=== PATIENT | female | born 1945 | race Caucasian/White ===

== ENCOUNTER → 2016-02-29 16:28 | Outpatient (CLI) | payer MEDICARE, OTHER ==
[2014-07-03 07:00] VITALS: BMI 29.0
[~2016-02-29 16:28] MED LIST: AMBIEN10 MG PO; AREDS; ATIVAN1 MG PO; BAYER CHEWABLE81 MG PO; CALCIUM 500 +1 EAC3 PO; CYCLOBENZAPRINE5 MG PO; CYMBALTA60 MG PO; DEXILANT30 MG PO; FLUTICASONE PRO16 GM NASAL; HYDROCHLOROTHIA25 MG; ISOSORBIDE DINI30 MG PO; METOPROLOL TART50 MG PO; PEPCID40 MG PO; PLAVIX75 MG PO; PRALUENT P75 MG/1 ML SC; PROZAC20 MG PO; SYNTHROID112 MCG PO; VITAMIN D250000 UNIT PO; ZETIA10 MG PO
== END | disposition home or self-care (01) ==
LOC: D.MAMMO 10:15
DX: Z12.31 Encounter for screening mammogram for malignant neoplasm of breast (principal)

== ENCOUNTER 2016-05-06 12:27 | Outpatient (CLI) | payer MEDICARE, OTHER ==
[~2016-05-06] VITALS: Ht 170.2 cm; Wt 85.5 kg
[~2016-05-06 12:27] MED LIST changes: -CYMBALTA60 MG PO; -HYDROCHLOROTHIA25 MG; -PEPCID40 MG PO; -PRALUENT P75 MG/1 ML SC
[2016-05-06] MEDS ORDERED: PRALUENT P75 MG/1 ML SC (13:03)
[2016-05-06] MEDS ORDERED: CYMBALTA60 MG PO (13:03)
[2016-05-06] MEDS ORDERED: PEPCID40 MG PO (13:04)
[2016-05-06] MEDS ORDERED: HYDROCHLOROTHIA25 MG (13:06)
[2016-05-06 13:10] VITALS: BP 124/70; Ht 170.2 cm; Wt 85.5 kg
--- NOTE | 2016-05-06 13:56 | NUR ---
1350 NO PROBLEMS WITH INJECTION, STATES MAYBE HER ACID REFLUX IS A LITTLE WORSE BUT MAYBE IT'S WORSE SINCE SHE READ IN THE PAPERS IT MAY GET WORSE. DENIES PROBLEMS. RELEASED AMB.
== END 2016-05-06 13:50 | disposition home or self-care (01) ==
LOC: D.OPS 12:27
DX: M81.0 Age-related osteoporosis without current pathological fracture (principal)

== ENCOUNTER → 2016-07-18 07:31 | Outpatient (CLI) | payer MEDICARE, OTHER ==
[2016-05-06 13:10] VITALS: BMI 29.5
[~2016-07-18 07:31] MED LIST changes: +CYMBALTA60 MG PO; +HYDROCHLOROTHIA25 MG; +PEPCID40 MG PO; +PRALUENT P75 MG/1 ML SC
== END | disposition home or self-care (01) ==
LOC: D.CT 07:31
DX: I70.219 Atherosclerosis of native arteries of extremities with intermittent claudication, unspecified extremity (principal)

== ENCOUNTER 2016-07-24 06:12 | Day surgery (SDC) | payer MEDICARE, OTHER ==
[2016-07-23 11:02] LABS: HEMATOCRIT 42.5 % (36.0-48.0); HEMOGLOBIN 13.6 g/dL (12-16); MCH 30.8 pg (26.0-34.0); MCV 96.4 fL (80.0-100.0); MEAN PLATELET VOLUME 9.1 fL (7.4-10.4); RBC 4.41 10x6/uL (4.00-5.40); RDW 12.4 % (11.5-14.5)
[2016-07-23 11:20] LABS: CALC OSMOLALITY 274 mosm/kg (275-300); CALCIUM 8.3 mg/dL (8.5-10.1); CARBON DIOXIDE 28.2 mmol/L (21.0-32.0); CHLORIDE - SERUM 104 mmol/L (98-107); CREATININE - SERUM 0.7 mg/dL (0.6-1.3); GLUCOSE 89 mg/dL (74-106); POTASSIUM - SERUM 4.2 mmol/L (3.5-5.1); SODIUM 139 mmol/L (136-145); UREA NITROGEN 8 mg/dL (7-18); eGFR NON AFRICAN AMERICAN 88 mL/min (90-120)
[~2016-07-24] VITALS: Ht 170.2 cm; Wt 87.1 kg
[~2016-07-24 06:12] MED LIST changes: -AREDS; +AREDS PO; -HYDROCHLOROTHIA25 MG; +HYDROCHLOROTHIA25 MG PO
[2016-07-24] MEDS ORDERED: GABAPENTIN100 MG (11:04)
[2016-07-24] MEDS ORDERED: FLORAJEN3 CAPS460 MG (11:06)
[2016-07-24 11:11] VITALS: BP 139/67; Ht 170.2 cm; Wt 87.1 kg
--- NOTE | 2016-07-25 15:49 | OP ---
PATIENT NAME: RADHA GARRETT MEDICAL RECORD: [id number] :46 LOCATION:[facility] ADMISSION DATE: SURGEON: NATALIIA MARTINES MD DATE OF OPERATION: 07/24/2016 SURGEON: Nataliia Martines MD ANESTHESIA: MAC by Ryan Tineo CRNA. PREOPERATIVE DIAGNOSES: Recurring urinary tract infections, possible interstitial cystitis, urethral stricture. PROCEDURES: Urethral dilation to 30-Azerbaijani, cystoscopy, intravesical Rimso instillation 50 mL times 50%, [employer], lot #[id number], expiration date is January 2018. FINDINGS: No urethral stricture, but abnormal angulation due to cystocele and enterocele. Single ureteral orifices bilaterally. No eroded mesh seen in the bladder. No bladder tumors. Diffuse bladder inflammation. ESTIMATED BLOOD LOSS: None. CLINICAL HISTORY: This is a 71-year-old female with a rather complicated history. At the present time, she has symptoms of recurrent urinary tract infections. She was seen by doctors, Barry and Jacqueline previously. She has had in the past a hysterectomy and a Jaci plication and placement of a cystocele repair with mesh. She then had recurrence of the cystocele and Dr. Phillips removed the old mesh and placed the new mesh graft for reduction of the cystocele. She still had issues with feeling incomplete, emptying of the bladder. Dr. Reddy performed periodic urethral dilations on her. Also, she continued to have recurrent symptoms of urinary tract infections, although I am not sure if she ever had achieved positive cultures. Dr. Phillips kept her on cephalexin for a very prolonged period of time. Eventually, she gave up on that treatment. She was dissatisfied overall with the seeming lack of progress in her treatment, then she came to see me in [place]. When I examined her, she had what seemed to me to be an enterocele grade II-III, but there is also a bit of recurrence of her prolapse. I was concerned about whether or not she had graft erosion into the bladder. On bimanual examination, there seems to be no graft exposure in the vaginal space. She tells me that she began having symptoms of cystitis. Today, we gave her a gram of Ancef and she will be having urethral dilation as well as cystoscopy. DESCRIPTION OF PROCEDURE: The patient was given IV sedation. She was placed in the dorsal lithotomy position and prepped and draped. The urethral sounds from 20-Azerbaijani were progressively increased in size and used to dilate the urethra to 30-Azerbaijani. However, even in passing the 20-Azerbaijani urethral sound, I could not really feel significant degree of resistance in the urethra. The urethra is hypermobile and there may be angulation of the urethra from her recurrent cystocele, which ____ grade I and a definite enterocele grade II-III by the [place]-Walker scale. The cystoscope was then introduced. That is a 21-Azerbaijani cystoscope with 30-degree lens. Looking in the bladder, no mesh is seen in the urethra or the bladder wall. She has single ureteral orifices on each side. No bladder tumors were seen. There was quite significant and diffuse bladder inflammation. She has been on antibiotics recently; I do not think that this is a bacterial infection. We drained the bladder through the cystoscope sheath. I OPERATIVE REPORT [id number] RADHA GARRETT introduced a 14-Azerbaijani red rubber catheter and through the catheter, 50 mL of 50% Rimso was instilled into the bladder. She will hold it in for a period of at least 15 minutes. This is an anti-inflammatory. I will see her again in the followup next week in [facility] where she will get treatment #2 of Rimso. Eventually, I will have to discuss with her an abdominal sacral colpopexy to try to fix the apical defect in the vaginal vault. TRANSINT:[id number] Voice Confirmation ID: [id number] DOCUMENT ID: [id number] NATALIIA MARTINES MD at 1549 CC: [id number] DICTATION DATE: 07/24/16 1454 ENGAGEMENT LIAISON: 07/25/16 0042 [facility] 07/24/16 [facility] [address] [id number]
== END 2016-07-24 15:25 | disposition home or self-care (01) ==
LOC: D.PAN 06:12 → D.OPS 11:45 → D.PAN 15:25
PROVIDERS: Anesthesiology
DX: N39.0 Urinary tract infection, site not specified (principal); N81.10 Cystocele, unspecified; K46.9 Unspecified abdominal hernia without obstruction or gangrene

== ENCOUNTER → 2016-08-22 19:23 | Outpatient (CLI) | payer MEDICARE, OTHER ==
[~2016-08-22 19:23] MED LIST changes: +FLORAJEN3 CAPS460 MG; +GABAPENTIN100 MG
[2016-08-22 19:31] LABS: APPEARANCE CLEAR (CLEAR); BILIRUBIN NEGATIVE (NEGATIVE); COLOR YELLOW (YELLOW); GLUCOSE NEGATIVE (NEGATIVE); KETONE NEGATIVE (NEGATIVE); LEUKOCYTE ESTERASE NEGATIVE (NEGATIVE); NITRITE NEGATIVE (NEGATIVE); PROTEIN NEGATIVE (NEGATIVE); SPECIFIC GRAVITY 1.005 (1.005-1.020); UROBILINOGEN NORMAL (NORMAL)
== END | disposition home or self-care (01) ==
LOC: D.LABREF 19:23
PROVIDERS: Urology
DX: N39.0 Urinary tract infection, site not specified (principal)

== ENCOUNTER → 2016-10-07 18:03 | Outpatient (CLI) | payer MEDICARE, OTHER ==
[2016-10-07 19:16] LABS: COLOR YELLOW (YELLOW)
[2016-10-07 19:17] LABS: APPEARANCE HAZY (CLEAR); BILIRUBIN NEGATIVE (NEGATIVE); EPITHELIAL CELLS 0-5 /hpf (0-5); GLUCOSE NEGATIVE (NEGATIVE); KETONE NEGATIVE (NEGATIVE); LEUKOCYTE ESTERASE 2+ (NEGATIVE); NITRITE POSITIVE (NEGATIVE); PROTEIN NEGATIVE (NEGATIVE); SPECIFIC GRAVITY 1.005 (1.005-1.020); UROBILINOGEN NORMAL (NORMAL); WHITE CELLS - URINE 25-50 /hpf (0-5)
[2016-10-07 19:18] LABS: BACTERIA MODERATE /hpf (NONE SEEN)
== END | disposition home or self-care (01) ==
LOC: D.LABREF 18:03
PROVIDERS: Urology
DX: N39.0 Urinary tract infection, site not specified (principal)

== ENCOUNTER 2016-12-18 11:33 | Outpatient (CLI) | payer MEDICARE, OTHER ==
[~2016-12-18 11:33] MED LIST changes: -AREDS PO; +PRESERVISION AR1 CAP PO
[2016-12-18 12:03] VITALS: BP 128/59; BMI 30.6
--- NOTE | 2016-12-18 12:11 | NUR ---
1205- PROLIA INJECTION GIVEN IN RIGHT ARM LOT #: [id number] EXP: 11/04
== END 2016-12-18 12:18 | disposition home or self-care (01) ==
LOC: D.OPS 11:33
DX: M80.08XA Age-related osteoporosis with current pathological fracture, vertebra(e), initial encounter for fracture (principal)

== ENCOUNTER → 2017-05-11 19:01 | Outpatient (CLI) | payer MEDICARE, OTHER | END | disposition home or self-care (01) | LOC: D.LABREF 19:01 | DX: N39.0 Urinary tract infection, site not specified (principal) ==

== ENCOUNTER → 2017-06-03 18:48 | Outpatient (CLI) | payer MEDICARE, OTHER | END | disposition home or self-care (01) | LOC: D.LABREF 18:48 | DX: N39.0 Urinary tract infection, site not specified (principal) ==

== ENCOUNTER → 2017-07-21 20:22 | Outpatient (CLI) | payer MEDICARE, OTHER | END | disposition home or self-care (01) | LOC: D.LABREF 20:22 | DX: N39.0 Urinary tract infection, site not specified (principal) ==